=== PATIENT | female | born 1965 | race Caucasian/White ===

== ENCOUNTER → 2022-12-25 16:14 | Outpatient (CLI) | payer BC, SELFPAY ==
--- NOTE | 2022-12-25 | CA_ITS ---
FINAL REPORT TECHNIQUE: Color Doppler, duplex Doppler and compression sonography of the left lower extremity deep venous systems was performed. CLINICAL HISTORY: .plantar fascitis, lt leg swelling FINDINGS: There is no evidence of deep venous thrombosis from the level of the groin to the calf. The veins are patent and compressible. IMPRESSION: No evidence of deep venous thrombosis left lower extremity. Reviewed, Interpreted and Dictated by hJonatan Ruiz III, MD Transcribed by Traci Corley Authenticated and [facility]
== END ==
LOC: RT 16:21
PROVIDERS: PCP Nurse Practitioner Family; Visit Provider Nurse Practitioner Family
DX: R60.0 Localized edema (principal)
CPT/HCPCS: 93971

== ENCOUNTER → 2022-12-29 16:54 | Outpatient (CLI) | payer BC, SELFPAY ==
--- NOTE | 2022-12-29 | XR_ITS ---
PROCEDURE INFORMATION: Exam: XR Left Ankle Exam date and time: 12/29/2022 5:00 PM Age: 57 years old Clinical indication: Swelling or effusion of joint; Ankle; Additional info: Swelling of ankle joint TECHNIQUE: Imaging protocol: Radiologic exam of the left ankle. Views: 3 or more views. COMPARISON: CA VENOUS DOPPLER LE LT 12/25/2022 4:25 PM FINDINGS: Bones/joints: There is no evidence of acute fracture.There is no evidence of malalignment or dislocation. Calcaneal spur Soft tissues: Mild bimalleolar soft tissue swelling IMPRESSION: There is no evidence of acute fracture.There is no evidence of malalignment or dislocation.
--- NOTE | 2022-12-29 | XR_ITS ---
PROCEDURE INFORMATION: Exam: XR Left Foot Exam date and time: 12/29/2022 5:20 PM Age: 57 years old Clinical indication: Edema; Location not specified; Additional info: Edema of foot TECHNIQUE: Imaging protocol: Radiologic exam of the left foot. Views: 3 or more views. COMPARISON: CR XR ANKLE LT MIN 3V 12/29/2022 5:00 PM FINDINGS: Bones/joints: There is no evidence of acute fracture.There is no evidence of malalignment or dislocation. Degenerative changes in the tarsal bones Soft tissues: Normal. IMPRESSION: There is no evidence of acute fracture.There is no evidence of malalignment or dislocation.
== END ==
PROVIDERS: PCP Nurse Practitioner Family; Visit Provider Nurse Practitioner Family
DX: M25.572 Pain in left ankle and joints of left foot (principal); M25.472 Effusion, left ankle; R60.0 Localized edema
CPT/HCPCS: 73610; 73630

== ENCOUNTER → 2023-03-30 09:47 | Outpatient (CLI) | payer BC, SELFPAY ==
--- NOTE | 2023-03-30 09:48 | US_ITS ---
FINAL REPORT CLINICAL HISTORY: .rt thyroid fna -- moni resendiz FINDINGS: Ultrasound guided thyroid biopsy. HISTORY: Thyroid mass. PROCEDURE: After informed consent was obtained and a time-out was performed, the patient was prepped and draped in usual sterile fashion over the right neck. Utilizing local anesthesia and sterile technique with a 25-gauge needle, access to lesion was obtained. 4 passes were made. The patient tolerated the procedure well and left the department in good condition. IMPRESSION: Status post ultrasound guided biopsy of thyroid without immediate complication. Films reviewed , interpreted and dictated by Dr. Ruiz Transcribed by Moni Ludwig PA-C. Reviewed, Interpreted and Dictated by Jhonatan Ruiz III, MD Transcribed by MEGHAN Bryant Authenticated and [facility]
--- NOTE | 2023-03-30 09:49 | US_ITS ---
FINAL REPORT CLINICAL HISTORY: NODULE FINDINGS: Ultrasound of the thyroid gland: The right thyroid gland measures 4.5 x 1.7 x 1.9 cm in size. There are multiple nodules within the right thyroid gland. The 1st nodule measures 8 x 8 x 6 mm in size, is solid and hypoechoic, and is a TI-RADS 4 classification nodule. The 2nd significant nodule in the right thyroid gland measures 7 x 6 x 4 mm in size, is isoechoic and solid, and is a TI-RADS 3 classification nodule. The 3rd significant nodule in the right thyroid gland measures 15 x 14 x 10 mm in size, is solid and isoechoic with macro calcifications. This is a TI-RADS 4 classification nodule. Multiple other small nodules are noted in the right lobe. The left lobe of the thyroid gland measures 4.2 x 1.7 x 2.1 cm in size. There is a spongiform appearing nodule in the left thyroid gland that measures 18 x 12 x 10 mm in size, and is classified as a TI-RADS 1 category nodule. Other small nodules are also noted in the left thyroid gland. The isthmus measures 0.4 cm in thickness. IMPRESSION: Multiple thyroid nodules present as described above. Would recommend biopsy of the right lobe 15 x 14 x 10 cm solid and isoechoic nodule with macrocalcifications at this time. Recommend follow-up ultrasound examination in 12 months. Reviewed, Interpreted and Dictated by Jhonatan Ruiz III, MD Transcribed by Britt Shelby Authenticated and [facility]
== END ==
LOC: RAD 09:48
PROVIDERS: PCP Nurse Practitioner Family; Visit Provider Nurse Practitioner
DX: E04.1 Nontoxic single thyroid nodule (principal)
CPT/HCPCS: 10005; 76536

== ENCOUNTER 2023-04-25 00:48 | Emergency (ER) | payer BC, SELFPAY ==
[2023-04-25] VITALS (8 sets, daily range): BP systolic 130–176; BP diastolic 71–114; PULSE 53–68; RESP 12–17; TEMP 36.3; O2SAT 94–96; BMI 34.5; BMI 39.5
--- NOTE | 2023-04-25 00:55 | XR_ITS ---
PROCEDURE INFORMATION: Exam: XR Left Wrist Exam date and time: 04/25/2023 12:59 AM Age: 57 years old Clinical indication: Injury or trauma; Fall; Additional info: Fall, pain TECHNIQUE: Imaging protocol: Radiologic exam of the left wrist. Views: 3 or more views. COMPARISON: CR Forearm L 04/25/2023 12:59 AM FINDINGS: Bones/joints: Normal. The joints are well aligned. There is no fracture present. There is no area of lysis. Soft tissues: Normal. IMPRESSION: No fracture or dislocation.
--- NOTE | 2023-04-25 00:55 | XR_ITS ---
PROCEDURE INFORMATION: Exam: XR Left Elbow Exam date and time: 04/25/2023 12:58 AM Age: 57 years old Clinical indication: Injury or trauma; Fall; Additional info: Fall, pain TECHNIQUE: Imaging protocol: Radiologic exam of the left elbow. Views: 3 or more views. COMPARISON: CR XR HUMERUS LT 04/25/2023 12:55 AM FINDINGS: Bones/joints: Proximal diaphyseal fracture of the ulna with 1.1 cm of displacement. Dislocation of the radial head. Soft tissues: Normal. IMPRESSION: 1. Proximal diaphyseal fracture of the ulna with 1.1 cm of displacement. 2. Dislocation of the radial head.
--- NOTE | 2023-04-25 00:55 | XR_ITS ---
PROCEDURE INFORMATION: Exam: XR Left Forearm Exam date and time: 04/25/2023 12:59 AM Age: 57 years old Clinical indication: Injury or trauma; Fall; Additional info: Fall, pain TECHNIQUE: Imaging protocol: Radiologic exam of the left forearm. Views: 2 views. COMPARISON: CR XR ELBOW LT MIN 3V 04/25/2023 12:58 AM FINDINGS: Bones/joints: Proximal diaphyseal fracture of the ulna with 1.1 cm of displacement. No other fracture or dislocation. Soft tissues: Normal. IMPRESSION: 1. Proximal diaphyseal fracture of the ulna with 1.1 cm of displacement. 2. No other fracture or dislocation.
--- NOTE | 2023-04-25 00:59 | XR_ITS ---
PROCEDURE INFORMATION: Exam: XR Left Humerus Exam date and time: 04/25/2023 12:55 AM Age: 57 years old Clinical indication: Injury or trauma; Fall; Additional info: Fall, pain TECHNIQUE: Imaging protocol: Radiologic exam of the left humerus. Views: 2 or more views. COMPARISON: No relevant prior studies available. FINDINGS: Bones/joints: Normal. There is no acute fracture present. The joints are well aligned. Soft tissues: Normal. IMPRESSION: No fracture of the humerus. Please see separately dictated examination of the elbow.
--- NOTE | 2023-04-25 01:02 | PC.NURSE ---
patient gone to RAD at this time.
[2023-04-25 01:35] LABS: Basophils # 0.1 K/mm3 (0-0.2); Basophils % 0.4 % (0.1-2.0); Eosinophils # 0.1 K/mm3 (0.0-0.4); Eosinophils % 0.9 % (0.1-12.0); Hemoglobin 14.5 g/dL (12.2-16.2); Lymphocytes % 22.9 % (10-50); Mean Corpuscular Hemoglobin 31.3 pg (27.0-31.2); Mean Corpuscular Volume 95.1 fl (81-99); Mean Platelet Volume 7.7 fl (7.4-10.4); Monocytes # 0.6 K/mm3 (0.1-1.0); Monocytes % 4.6 % (1.7-9.3); Neutrophils # 9.3 K/mm3 (1.8-7.8); Neutrophils % 71.3 % (37.0-80.0); Platelet Count 259 K/mm3 (142-424); Red Blood Count 4.62 M/mm3 (4.20-5.40); Red Cell Distribution Width 12.9 % (11.5-17.5); White Blood Count 13.1 K/mm3 (4.8-10.8)
[2023-04-25 01:37] LABS: Chloride 101 mmol/L (98-107); Sodium 139 mmol/L (136-145)
[2023-04-25 01:38] LABS: Potassium 3.7 mmoL/L (3.5-5.1)
[2023-04-25 01:40] LABS: Alanine Aminotransferase 62 U/L (12-78); Alkaline Phosphatase 117 U/L (38-126); Aspartate Amino Transferase 47 U/L (14-36); Bilirubin,Total 0.3 mg/dl (0.2-1.3); Blood Urea Nitrogen 19 mg/dl (7-17); Creatinine Clearance Estimated 195 mL/min (50-200); Estimated Glomerular Filt Rate 103 ml/min (>60); GFR (African American) 125 ML/MIN (>60)
[2023-04-25 01:41] LABS: Albumin Level 4.7 g/dl (3.5-5.0); Albumin/Globulin Ratio 1.5 (1.1-1.8); Anion Gap 11.7 mEq/L (5-15); Calcium 9.3 mg/dl (8.4-10.2); Carbon Dioxide 30 mmol/L (22.0-30.0); Globulin 3.2 g/dL (1.3-3.2); Glucose 163 mg/dl (74-100); Total Protein,Serum 7.9 g/dl (6.3-8.2)
--- NOTE | 2023-04-25 01:50 | PC.NURSE ---
pt still c/o severe pain to left elbow. New order for dilaudid 1mg ivp
--- NOTE | 2023-04-25 02:10 | HMH.EDFALL ---
Discharge Plan Disposition Patient Disposition: Home, Self-Care Chief Complaint: Fall Prescriptions Prescriptions: No Action ergocalciferol (vitamin D2) 1,250 mcg (50,000 unit) capsule 1,250 mcg PO WEEKLY hydrochlorothiazide 25 mg tablet 25 mg PO DAILY Patient Comments: TAKE ONE (1) TABLET DAILY atorvastatin 20 mg tablet 20 mg PO DAILY atenolol 50 mg tablet 50 mg PO BID olopatadine [Pataday Once Daily Relief] 0.2 % drops 1 drp Eye-Both DAILY Patient Comments: INSTILL ONE (1) DROP INTO AFFECTED EYE(S) BY OPHTHALMIC ROUTE ONCE DAILY albuterol sulfate 2.5 mg /3 mL (0.083 %) solution for nebulization 2.5 mg inhalation Q4-6H PRN (Reason: Breathing Problems) fluticasone propionate 50 mcg/actuation spray,suspension 1 spray intranasal DAILY Patient Comments: SPRAY ONE (1) SPRAY EVERY DAY BY INTRANASAL ROUTE. irbesartan 150 mg tablet 150 mg PO DAILY Referrals Follow up/Referrals: Crystal Hurtado APRN [Primary Care Provider] - See instructions Yovani Sage DO [Staff Physician] - See instructions Clinical Impressions Clinical Impression: Monteggia fracture, closed Instructions Patient Instructions: DI for Moderate Sedation, DI for Elbow Fracture Discharge ED Provider: Gerson (ED)Ash Fall HPI General Chief Complaint: Fall Stated Complaint: AO 04/25/23 23:30 Left arm injury Time Seen by Provider: 04/25/23 02:10 Mode of Arrival: Wheelchair Source of Information: Patient and Medical Record Limitations: No Limitations Description of Symptoms (Recalled from ER Triage Doc. by RN): pt states tripped over 's boot and landed on knees and lt arm/ pt c/o lt arm pain. pt denies loc History of Present Illness HPI Narrative: trip injury and acute lt elbow pain - no neck pain and no hip pain MD complaint: fall Onset (ago): hour(s) Fall from: standing Fall witnessed: no Place fall occurred: home Loss of consciousness: none Prolonged down time: no Context: tripped/slipped Location of injury - extremities: Left: elbow Severity: moderate Associated symptoms (after fall): denies Related Data Home Medications Medication Instructions Recorded Confirmed albuterol sulfate 2.5 mg/3 mL 2.5 mg inhalation Q4-6H PRN 03/25/23 04/25/23 (0.083 %) solution for nebulization Breathing Problems atenolol 50 mg tablet 50 mg PO BID High Blood Pressure 03/25/23 04/25/23 atorvastatin 20 mg tablet 20 mg PO DAILY High Cholesterol 03/25/23 04/25/23 ergocalciferol (vitamin D2) 1,250 1,250 mcg PO WEEKLY Supplement 03/25/23 04/25/23 mcg (50,000 unit) capsule hydrochlorothiazide 25 mg tablet 25 mg PO DAILY High Blood Pressure 03/25/23 04/25/23 olopatadine 0.2 % eye drops 1 drp Eye-Both DAILY . 03/25/23 04/25/23 (Pataday Once Daily Relief) fluticasone propionate 50 1 spray intranasal DAILY Allergy 04/22/23 04/25/23 mcg/actuation nasal Symptoms spray,suspension irbesartan 150 mg tablet 150 mg PO DAILY High Blood Pressure 04/25/23 04/25/23 Allergies Allergy/AdvReac Type Severity Reaction Status Date / Time amlodipine Allergy Rash Verified 04/22/23 15:19 z pack Allergy Mild Rash Uncoded 04/22/23 15:19 Penicillin Allergy Unknown Uncoded 04/22/23 15:19 [facility] Disclaimer: The information contained in this section may have been updated after the patient was seen, as this information can be updated by other users. Medical History Asthma HLD (hyperlipidemia) HTN (hypertension), benign Thyroid Nodule Thyromegaly Surgical History H/O total hysterectomy History of appendectomy History of removal of ovarian cyst Hx of colonoscopy Hx of tonsillectomy Family History Other Cancer FHx: mental illness Hypertension Social History (Updated 04/22/23 @ 15:18 by Cindy Collins) Smoking Statu
--- NOTE | 2023-04-25 02:19 | PC.NURSE ---
Paged at this time.
--- NOTE | 2023-04-25 02:20 | PC.NURSE ---
o/p with at this time.
--- NOTE | 2023-04-25 02:22 | PC.NURSE ---
MD Nieto and staff reviewed procedure with pt and her & daughter. signed consent for procedure.
--- NOTE | 2023-04-25 02:36 | PC.NURSE ---
Puma Edge RN, and tin Oh at bedside to reduce fracture and displacement
--- NOTE | 2023-04-25 02:38 | XR_ITS ---
PROCEDURE INFORMATION: Exam: XR Left Elbow Exam date and time: 04/25/2023 2:45 AM Age: 57 years old Clinical indication: Injury or trauma; Fall; Additional info: Post reduction replaced TECHNIQUE: Imaging protocol: Radiologic exam of the left elbow. Views: 1 or 2 views. COMPARISON: CR XR ELBOW LT MIN 3V 04/25/2023 12:58 AM FINDINGS: Tubes, catheters and devices: Interval placement of overlying splint. Bones/joints: Interval reduction of the radial head. Proximal diaphyseal fracture of the ulna with 2 mm of displacement. Soft tissues: Normal. IMPRESSION: 1. Interval reduction of the radial head. 2. Proximal diaphyseal fracture of the ulna with 2 mm of displacement. This is significantly improved. 3. Interval placement of overlying splint.
--- NOTE | 2023-04-25 02:43 | PC.NURSE ---
nuclear medicine chief technologist called for portable XR to confirm reduction
--- NOTE | 2023-04-25 02:59 | PC.NURSE ---
paged at this time.
--- NOTE | 2023-04-25 03:01 | CT_ITS ---
PROCEDURE INFORMATION: Exam: CT Left Upper Extremity Without Contrast, Elbow Exam date and time: 04/25/2023 3:30 AM Age: 57 years old Clinical indication: Injury or trauma; Fall; Additional info: FX dislocation- post reduction CT request TECHNIQUE: Imaging protocol: Computed tomography of the left upper extremity without contrast. Exam focused on the elbow. Radiation optimization: All CT scans at this facility use at least one of these dose optimization techniques: automated exposure control; mA and/or kV adjustment per patient size (includes targeted exams where dose is matched to clinical indication); or iterative reconstruction. REPORTING DATA: Count of CT and Cardiac NM exams in prior 12 months: This patient has received 0 known CTs and 0 known cardiac nuclear medicine studies in the 12 months prior to the current study. COMPARISON: CR XR ELBOW LT 2V 04/25/2023 2:45 AM FINDINGS: Bones/joints: Proximal diaphyseal fracture of the ulna with up to 2 mm of displacement. Chip fracture off the articular surface of the lateral condyle. No other fracture. The radial head is well aligned. Soft tissues: Normal. IMPRESSION: 1. Proximal diaphyseal fracture of the ulna with up to 2 mm of displacement. 2. Chip fracture off the articular surface of the lateral condyle. 3. No other fracture. The radial head is well aligned. A splint is present.
--- NOTE | 2023-04-25 03:02 | PC.NURSE ---
o/p with at this time.
--- NOTE | 2023-04-25 03:08 | PC.NURSE ---
pt and pt's family updated that reduction was successful and will be doing ct of elbow per DR dominguez request.
== END 2023-04-25 04:28 | disposition home or self-care (01) ==
PROVIDERS: Emergency Provider Emergency Medicine; PCP Nurse Practitioner Family
DX: S52.272A Monteggia's fracture of left ulna, initial encounter for closed fracture (principal); J45.909 Unspecified asthma, uncomplicated; I10 Essential (primary) hypertension; E78.5 Hyperlipidemia, unspecified; E01.0 Iodine-deficiency related diffuse (endemic) goiter; Z87.891 Personal history of nicotine dependence
CPT/HCPCS: 24620; 73060; 73070; 73080; 73090; 73110; 73200; 80053; 85025; 96361; 96375; 96376; 99152; 99285; J2405

== ENCOUNTER → 2023-04-28 09:42 | Outpatient (CLI) | payer BC, SELFPAY ==
[2023-04-28 10:23] LABS: Basophils % 0.2 % (0.1-2.0); Eosinophils # 0.1 K/mm3 (0.0-0.4); Eosinophils % 0.9 % (0.1-12.0); Hematocrit 45.8 % (37.0-47.0); Hemoglobin 15.3 g/dL (12.2-16.2); Lymphocytes # 2.5 K/mm3 (0.7-4.5); Lymphocytes % 15.3 % (10-50); Mean Corpuscular HGB Conc 33.4 g/dL (31.8-35.4); Mean Corpuscular Hemoglobin 31.8 pg (27.0-31.2); Mean Corpuscular Volume 95.3 fl (81-99); Mean Platelet Volume 7.9 fl (7.4-10.4); Monocytes # 0.7 K/mm3 (0.1-1.0); Monocytes % 4.6 % (1.7-9.3); Neutrophils # 12.7 K/mm3 (1.8-7.8); Neutrophils % 79.1 % (37.0-80.0); Platelet Count 321 K/mm3 (142-424); Red Blood Count 4.81 M/mm3 (4.20-5.40); White Blood Count 16.1 K/mm3 (4.8-10.8)
[2023-04-28 10:26] LABS: MANUAL DIFFERENTIAL MANUAL DIFFERENTIAL (MANUAL DIFF)
[2023-04-28 10:48] LABS: Alanine Aminotransferase 53 U/L (12-78); Albumin Level 4.7 g/dl (3.5-5.0); Albumin/Globulin Ratio 1.6 (1.1-1.8); Alkaline Phosphatase 103 U/L (38-126); Anion Gap 14.1 mEq/L (5-15); Aspartate Amino Transferase 41 U/L (14-36); Blood Urea Nitrogen 16 mg/dl (7-17); Calcium 9.8 mg/dl (8.4-10.2); Carbon Dioxide 29 mmol/L (22.0-30.0); Chloride 99 mmol/L (98-107); Estimated Glomerular Filt Rate 74 ml/min (>60); GFR (African American) 90 ML/MIN (>60); Globulin 2.9 g/dL (1.3-3.2); Glucose 142 mg/dl (74-100); Potassium 4.1 mmoL/L (3.5-5.1); Sodium 138 mmol/L (136-145); Total Protein,Serum 7.6 g/dl (6.3-8.2)
[2023-04-28 11:53] LABS: Lymphocytes % 15 % (10-50); Monocytes % 4 % (2-9); Neutrophils % 81 % (42-76); Platelet Estimate Normal; RBC Morphology Normal; Total Cells Counted 100
== END ==
PROVIDERS: PCP Nurse Practitioner Family; Visit Provider Orthopaedic Surgery
DX: Z01.818 Encounter for other preprocedural examination (principal); S52.272A Monteggia's fracture of left ulna, initial encounter for closed fracture
CPT/HCPCS: 36415; 80053; 85007; 85025

== ENCOUNTER → 2023-05-05 12:22 | Outpatient (CLI) | payer BC, SELFPAY ==
--- NOTE | 2023-05-05 12:35 | ECG_ITS ---
APPROVED REPORT Exam: Resting ECG HR:67 bpm ECG Measurements Heart Rate 67 AXES CA 188 P 16 QRSd 104 QRS -19 QT 382 T 11 QTc 398 Conclusion SINUS RHYTHM WITH OCCASIONAL VENTRICULAR PREMATURE COMPLEXES VOLTAGE CRITERIA FOR LVH [MEETS CRITERIA IN ONE OF: R(aVL), S(V1), R(V5), R(V5/V6)+S(V1)] ABNORMAL ECG UNCONFIRMED REPORT Electronically signed by : Hipolito Proctor MD 05/06/2023 21:20:13
[2023-05-05 12:39] LABS: Microscopic, Urine URINE MICROSCOPIC (MICROSCOPIC)
[2023-05-05 13:02] LABS: Basophils % 0.5 % (0.1-2.0); Eosinophils # 0.1 K/mm3 (0.0-0.4); Eosinophils % 1.4 % (0.1-12.0); Hematocrit 47.5 % (37.0-47.0); Lymphocytes # 2.3 K/mm3 (0.7-4.5); Lymphocytes % 27.2 % (10-50); Mean Corpuscular HGB Conc 33.8 g/dL (31.8-35.4); Mean Corpuscular Hemoglobin 31.9 pg (27.0-31.2); Mean Corpuscular Volume 94.5 fl (81-99); Mean Platelet Volume 7.6 fl (7.4-10.4); Monocytes # 0.5 K/mm3 (0.1-1.0); Monocytes % 5.8 % (1.7-9.3); Neutrophils # 5.5 K/mm3 (1.8-7.8); Platelet Count 325 K/mm3 (142-424); Red Blood Count 5.02 M/mm3 (4.20-5.40); Red Cell Distribution Width 12.8 % (11.5-17.5); White Blood Count 8.5 K/mm3 (4.8-10.8)
[2023-05-05 13:10] LABS: Appearance,Urine CLEAR (Clear); Bilirubin,Urine Negative (Negative); Blood, Urine TRACE-I (Negative); Color,Urine YELLOW (Yellow); Glucose,Urine (UA) Negative (Negative); Ketones,Urine Negative (Negative); Leukocyte Esterase,Urine Negative (Negative); Nitrate,Urine Negative (Negative); PH,Urine 6.5 (5.0-8.5); Protein,Urine Negative (Negative); Specific Gravity, Urine <= 1.005 (1.005-1.030); Urobilinogen,Urine 0.2 EU/dl (0.2)
== END ==
LOC: LAB 12:22
PROVIDERS: PCP Nurse Practitioner Family; Visit Provider Orthopaedic Surgery
DX: Z01.818 Encounter for other preprocedural examination (principal)
CPT/HCPCS: 36415; 81001; 85025; 93005

== ENCOUNTER 2023-05-06 09:06 | Day surgery (SDC) | payer BC, SELFPAY ==
[2023-05-06] VITALS (11 sets, daily range): BP systolic 115–132; BP diastolic 31–92; PULSE 62–93; RESP 14–18; TEMP 36.4–36.6; O2SAT 93–98; BMI 34.8
--- NOTE | 2023-05-06 10:22 | EXP.ANES.CKL ---
[facility] Disclaimer: The information contained in this section may have been updated after the patient was seen, as this information can be updated by other users. Medical History Asthma HLD (hyperlipidemia) HTN (hypertension), benign Thyroid Nodule Thyromegaly Surgical History H/O total hysterectomy History of appendectomy History of removal of ovarian cyst Hx of colonoscopy Hx of tonsillectomy Family History Other Cancer FHx: mental illness Hypertension Social History Smoking Status: Former smoker smoking status stop date: 03/23/23 alcohol intake: never substance use type: denies use current occupational status: employed Travel in the last 8 weeks: None household members: spouse and family housing: house lives independently: No marital status: education level: college service: No caffeine: Yes special ana needs: No agree to transfusion: No do you feel safe at home: Yes victim of physical abuse: No victim of emotional abuse: No victim of sexual abuse: No would you like helpful sources: No [facility] Anesthesia Checklist Patient Identification Patient Identification: Arm Band and Family Structural Data Admitted From: Home Planned Operative Procedure/s: Metal plate on Left Ulna Consent for Planned Operative Procedure(s) Verified: Yes Verified Documents: Surgical Consent and History and Physical NPO Status Verified Time NPO: 00:00 Additional verifications Patient : No Anesthesia Reactions: No Hx Blood Transfusions: No Blood Transfusion Reaction: No Cephalosporin Allergy: No Previous Colonoscopy: Yes Airway Assessment C-Spine Mobility Assessed: Yes TMJ Mobility Assessed: Yes Dentition: Good Dentition Neurological Assessment Level of Consciousness: Awake, Alert, Appropriate and Follows Commands Hx Seizures: No Numbness or tingling in extremities: No Anesthesia Plan Anesthesia Risk discussed: Yes ASA Class: II Anesthesia Type: MAC w/Block Preoperative Comments Pre-Operative Comments: Allergy to PCN, Amlodipine, and (Zithromycine, Hives). Hypertension, COPD, Hepatitis at age 13.
--- NOTE | 2023-05-06 13:31 | EXP.ANES.I ---
[facility] Anesthesia Record Part I Anesthesia Record I Intake, IV Amount: 2,800 Estimated blood loss (mL): 2 Urine output (mL): 0 Blood Products used (#): none Blood Pressure: 132/31 SaO2: 94 Pulse Rate: 93 Respiratory Rate: 14 Temperature: 97.6 F Patient is:: Drowsy and Stable Stable to PACU at:: 13:22
--- NOTE | 2023-05-06 13:38 | XR_ITS ---
FINAL REPORT CLINICAL HISTORY: LEFT ORIF ULNA IN OR. ft 34 sec FINDINGS: Fluoroscopy less than 1 hour History: Intraoperative instrument placement elbow Findings: Fluoroscopic guidance was provided for intraoperative instrument placement. A single spot film was obtained. 34 seconds of fluoro time was used. IMPRESSION: As above 63 kVp, 1.66 mA 1.71 mGy Reviewed, Interpreted and Dictated by Shilpa Nowak MD Transcribed by Britt Shelby Authenticated and [facility]
--- NOTE | 2023-05-06 14:31 | EXP.OP.NOTE ---
Date of procedure: 05/06/23 Pre-op Diagnosis:: Left Monteggia fracture status post closed reduction of radial head Post-op Diagnosis:: Same Procedure performed:: Open reduction internal fixation left ulna Surgeon:: Yovani Sage DO ENVIRONMENTAL CONSTRUCTION ENGINEER:: Other Anesthesia: GETA Estimated blood loss (mL): 0 Operative findings:: Stable radial head with flexion extension pronation supination Operative note:: Patient was identified preoperatively. Left arm marked yes my initials. Underwent a block with anesthesia. Then taken the operating room. Placed upon the operating bed. General anesthesia ministered airway secured. Then placed in a lateral position with a beanbag with the left arm up. Left arm was then prepped and draped in normal sterile fashion. Once prepped and draped final operative timeout performed to identify proper patient procedure and extremity. Everyone involved the case agreed. There is no counter indication beginning. She did receive preoperative antibiotics. Marking pen was used to make plan incision over the ulna. X-ray was brought into identify the fracture of the ulna. Esmarch was used to exsanguinate the extremity. Pneumatic tourniquet inflated to 250 mmHg. Skin knife was used incise the skin. Careful dissection was taken down to identify the fracture site fracture hematoma at the ulna. Fracture edges were cleaned and reduction of the ulna performed. 2.7 mm plate was selected from [employer] locking plate set. And a plate was placed both proximal and distal to the fracture site. Locking screws and cortical screws were used. This gave good reduction of the fracture elbow was taken through range of motion pronation supination of the elbow revealed stable radial head with the ulna out to length. Copious irrigation of the wound was performed. Deep layers closed with Vicryl stitch skin was closed with 3-0 nylon stitch sterile dressing placed in a well-padded posterior splint placed patient waken anesthesia taken recovery stable condition. Condition: stable Disposition: PACU Complications:: None apparent
--- NOTE | 2023-05-11 07:45 | P.PNANES_ITS ---
[facility] Anesthesia Record Part II Anesthesia Record Part II Discharge Time: 13:59 Destination: Surgical Day Care (OP Surgery) PACU nurse assessment reviewed?: Yes Patient Condition:: Good Anesthesia Complications:: None Swallowing reflex intact?: Yes Cyanosis?: No Blood Pressure: 131/77 Pulse Rate: 71 Temperature: 97.9 F Mental Status: Alert & Oriented Pain level:: 0 Nausea and/or vomitting:: None Intake, IV Amount: 0
[2023-05-11 07:46] VITALS: BP 131/77; PULSE 71; TEMP 36.6
== END 2023-05-06 14:29 | disposition home or self-care (01) ==
PROVIDERS: PCP Nurse Practitioner Family; Visit Provider Orthopaedic Surgery
PROC: (CPT 24685; principal; 2023-05-06 10:30)
DX: S52.272A Monteggia's fracture of left ulna, initial encounter for closed fracture (principal); I10 Essential (primary) hypertension; E78.5 Hyperlipidemia, unspecified; Z87.891 Personal history of nicotine dependence; W01.0XXA Fall on same level from slipping, tripping and stumbling without subsequent striking against object, initial encounter
CPT/HCPCS: 24685; 73070; 96374; C1713; C1776; J2405

== ENCOUNTER → 2023-05-26 14:27 | Outpatient (CLI) | payer BC, SELFPAY ==
--- NOTE | 2023-05-26 14:31 | XR_ITS ---
FINAL REPORT CLINICAL HISTORY: lt wrist pain, recent fall FINDINGS: 3 views of the left wrist were obtained. Overlying splint material obscures bony detail. There is no acute fracture or dislocation. There are mild to moderate degenerative changes of the radial aspect of the wrist. There is no soft tissue abnormality. IMPRESSION: No acute abnormality. Reviewed, Interpreted and Dictated by Jhonatan Ruiz III, MD Transcribed by Earle Chapman Authenticated and [facility]
--- NOTE | 2023-05-26 14:31 | XR_ITS ---
FINAL REPORT CLINICAL HISTORY: lt elbow pain, recent fall FINDINGS: LEFT ELBOW 3 views were obtained. There is a comminuted fracture of the proximal ulna with postoperative change from ORIF. There is a screw plate and multiple screws. The visualized joints are intact. IMPRESSION: Comminuted proximal ulna fracture with postoperative change. Reviewed, Interpreted and Dictated by Jhonatan Ruiz III, MD Transcribed by Earle Chapman Authenticated and [facility]
== END ==
PROVIDERS: PCP Nurse Practitioner Family; Visit Provider Orthopaedic Surgery
DX: S52.272A Monteggia's fracture of left ulna, initial encounter for closed fracture (principal); M25.522 Pain in left elbow
CPT/HCPCS: 73080; 73110

== ENCOUNTER 2023-05-26 15:50 | Outpatient (RCR) | payer BC, SELFPAY | END 2023-05-26 16:30 | disposition home or self-care (01) | LOC: OT 15:50 | PROVIDERS: Visit Provider Orthopaedic Surgery | DX: S52.272A Monteggia's fracture of left ulna, initial encounter for closed fracture (principal) ==

== ENCOUNTER → 2023-06-02 15:27 | Outpatient (CLI) | payer BC, SELFPAY ==
[2023-06-02 16:49] LABS: Alanine Aminotransferase 44 U/L (12-78); Albumin Level 4.6 g/dl (3.5-5.0); Alkaline Phosphatase 104 U/L (38-126); Aspartate Amino Transferase 36 U/L (14-36); Bilirubin,Indirect 0.5 mg/dL (0.0-0.9); Bilirubin,Total 0.5 mg/dl (0.2-1.3); Bilirubin,Unconjugated 0.6 mg/dL (0.0-1.1); Chol/HDL Ratio 3.8 (1-3.5); Cholesterol 188 mg/dl (140-200); HDL Cholesterol 49 mg/dl (40-60); Total Protein,Serum 7.6 g/dl (6.3-8.2); Triglycerides 320 mg/dl (30-150); VLDL Cholesterol 64 mg/dL (0-40)
[2023-06-02 17:00] LABS: Direct LDL Cholesterol 90.59 mg/dL (100-129)
[2023-06-02 17:13] LABS: Hemoglobin A1C 5.5 % (4.0-6.0)
== END ==
PROVIDERS: PCP Nurse Practitioner Family; Visit Provider Nurse Practitioner
DX: R73.9 Hyperglycemia, unspecified (principal); I10 Essential (primary) hypertension; E78.5 Hyperlipidemia, unspecified; I77.810 Thoracic aortic ectasia; J44.9 Chronic obstructive pulmonary disease, unspecified; Z78.9 Other specified health status
CPT/HCPCS: 36415; 80061; 80076; 83036

== ENCOUNTER → 2023-06-25 11:08 | Outpatient (CLI) | payer BC, SELFPAY ==
--- NOTE | 2023-06-25 11:27 | XR_ITS ---
FINAL REPORT CLINICAL HISTORY: f/u surg COMPARISON: None FINDINGS: LEFT WRIST Three views demonstrate no acute fracture or dislocation. The visualized joint spaces are normally aligned. The soft tissues are unremarkable. There is mild degenerative change in the radial aspect of the left wrist. IMPRESSION: No acute bony abnormality. Reviewed, Interpreted and Dictated by Jhonatan Ruiz III, MD Transcribed by Britt Shelby Authenticated and [facility]
--- NOTE | 2023-06-25 11:27 | XR_ITS ---
FINAL REPORT CLINICAL HISTORY: f/u surg COMPARISON: None FINDINGS: 2 views of the left forearm were obtained. There is a plate and orthopedic screws bridging an acute fracture of the proximal ulna. The joints are intact. There are no soft tissue abnormalities. IMPRESSION: ORIF fracture proximal left ulna. Reviewed, Interpreted and Dictated by Jhonatan Ruiz III, MD Transcribed by Britt Shelby Authenticated and [facility]
== END ==
PROVIDERS: PCP Nurse Practitioner Family; Visit Provider Orthopaedic Surgery
DX: S52.272A Monteggia's fracture of left ulna, initial encounter for closed fracture (principal)
CPT/HCPCS: 73090; 73110

== ENCOUNTER → 2023-07-23 09:53 | Outpatient (CLI) | payer BC, SELFPAY ==
--- NOTE | 2023-07-23 09:58 | XR_ITS ---
FINAL REPORT CLINICAL HISTORY: Lt elbow pain COMPARISON: 05/26/2023 FINDINGS: 3 views of the left elbow were obtained. There are postoperative changes from proximal ulnar ORIF with screw plate and multiple screws. There is no acute fracture or dislocation. There are mild degenerative changes. There is no acute soft tissue abnormality. IMPRESSION: Postoperative and degenerative changes without acute abnormality identified. Reviewed, Interpreted and Dictated by Jhonatan Ruiz III, MD Transcribed by Astrid Echeverria Authenticated and . [facility]
== END ==
PROVIDERS: PCP Nurse Practitioner Family; Visit Provider Orthopaedic Surgery
DX: M25.522 Pain in left elbow (principal); S52.272A Monteggia's fracture of left ulna, initial encounter for closed fracture
CPT/HCPCS: 73080

== ENCOUNTER 2023-09-23 11:00 | Outpatient (RCR) | payer BC, SELFPAY ==
--- NOTE | 2023-06-29 16:56 | HMH.OTOPEV ---
OT Inpatient Evaluation Rehab OT Outpatient Eval Start: 06/29/23 16:41 Freq: Status: Active Protocol: Document 06/29/23 16:41 LAKHWINDERDARYN (Rec: 06/29/23 16:56 MICHANNA MARIE [id number]) E-signed By Samira Mccarthy, OT Outpatient Therapy Subjective History Subjective History 58 year old female referred to skilled OP OT services for s/ p ORIF L ulna on 05/06/23. On patient reported that she fell at home resulted in the fracture. Patient is currently 8 weeks out form initial evaluation. New diagnosis of cancer in past 12 No months? Chief Complaint Pain,Weakness Symptom Type Ache Symptoms Relieved By Nothing Symptoms Aggravated By Physical Activity Prior Functional Limitations None Current Functional Limitations None Symptom Description Constant and Continuous Level of pain today (0-10) 4 Pain scale - at its best (0-10) 4 Pain scale - at its worst (0-10) 7 Shoulder/Elbow Eval Shoulder Objective Measurements Elbow Objective Measurements Elbow ROM Left full ROM elbow exam standard left Elbow Extension Active Range of Motion ( 45 degrees) Elbow Flexion Active Range of Motion ( 110 degrees) Elbow Pronation of Forearm Range of 90 Motion (degrees) Elbow Supination of Forearm Range of 45 Motion (degrees) Wrist/Hand Eval Customer Support Assistant/Pinch Strength Right Customer Support Assistant Strength Measurement (lbs) 50 Left Customer Support Assistant Strength Measurement (lbs) 25 QuickDASH Activities Please rate your ability to do the following activities in the last week by selecting the number below the appropriate response. 1. Open a tight or new jar. Unable 2. Do heavy customer support advisor (e.g., wash Unable colon, floors). 3. Carry a shopping bag or briefcase. Severe difficulty 4. Wash your back. Unable 5. Use a knife to cut food. Moderate difficulty 6. Recreational activities in which you Unable take some force or impact through your arm, shoulder, or hand (e.g., golf, hammering, tennis, etc.). 7. During the past week, to what extent Extremely has your arm, shoulder or hand problem interfered with your normal social activities with family, friends, neighbors or groups? 8. During the past week, were you Unable limited in your work or other regular daily activites as a result of your arm, shoulder or hand problem? 9. Arm, shoulder or hand pain. Severe 10. Tingling (pins and needles) in your Moderate arm, shoulder or hand. 11. During the past week, how much Moderate difficulty difficulty have you had sleeping because of the pain in your arm, shoulder or hand? Quick DASH 47 OT Outpatient Assessment Impairments Problems/Impairments Impaired Range of Motion, Impaired Strength,Subjective C /O Pain Prognosis Rehab Potential Good Clinical Impression Consistent with Diagnosis Yes Short Term Goals Number of Weeks 2 Increase Range of Motion Yes: AROM of L UE elbow flex: 120; ext: 40; SUP: 50 Increase Strength Yes: Improve L UE hand allied health teacher: 30# Decrease Subjective C/O Pain Yes: 6/10 pain at worst Patient to be Ind w/ HEP Yes: AAROM Patient to be Ind w/ Advanced HEP Yes: Strengthening Coal Deliverer Goals Number of Weeks 4 Increase Range of Motion Yes: AROM of L UE elbow flex: 130; ext: 30; SUP: 60 Increase Strength Yes: Improve L UE hand allied health teacher: 35# Decrease Subjective C/O Pain Yes: 5/10 pain at worst Patient to be Ind w/ HEP Yes: AROM Patient to be Ind w/ Advanced HEP Yes: Advance strengthening Outpatient Therapy Plan of Care Treatment Plan May Include Therapeutic Exercise Including Home Yes Exercise Program Manual Therapy Techniques Yes Therapeutic Activities to Return to Yes Previous Functional/Work Level Thermal Modalities Yes Electrical Stimulation Yes Ultrasound/Phonophoresis Yes Iontophoresis Yes Eval/Re-Eval Yes Aquatic Therapy Yes Frequency Times per week 2x/wk Duration Number of Weeks 4 weeks Addendums This patient is a candidate for social No or vocational rehab? Patient/Guardian verbally acknowledges Yes understanding of treatment program and consents to further treatment? Patient/Guardian verbally acknowledges Yes understanding of diagnosis, prognosis and goals for treatment? Eval Complexity OT Charge 85795 - Low Complexity PHYSICIAN CERTIFICATION: I certify the specified therapy services for Piper Peace are required, authorized, and reviewed every 30 days.
== END 2023-09-23 12:00 | disposition home or self-care (01) ==
LOC: OT 11:00
PROVIDERS: PCP Nurse Practitioner Family; Visit Provider Orthopaedic Surgery
DX: S52.612A Displaced fracture of left ulna styloid process, initial encounter for closed fracture (principal)
CPT/HCPCS: 97010; 97014; 97035; 97110; 97140; 97164; 97165; 97530; G0283

== ENCOUNTER → 2023-09-24 11:08 | Outpatient (CLI) | payer BC, SELFPAY ==
--- NOTE | 2023-09-24 11:28 | XR_ITS ---
FINAL REPORT CLINICAL HISTORY: elbow pain COMPARISON: 07/23/2023 FINDINGS: AP, oblique, and lateral views of the left elbow were obtained. There is no acute fracture or dislocation. There is a plate and screws, unchanged in appearance, in the proximal ulna. Mild degenerative changes present in the left elbow. There is no joint effusion or other soft tissue abnormality. IMPRESSION: No acute osseous abnormality of the left elbow. Status post ORIF proximal ulnar fracture, stable. Reviewed, Interpreted and Dictated by Jhonatan Ruiz III, MD Transcribed by Britt Shelby Authenticated and . [facility]
== END ==
PROVIDERS: PCP Nurse Practitioner Family; Visit Provider Orthopaedic Surgery
DX: M25.522 Pain in left elbow (principal)
CPT/HCPCS: 73080

== ENCOUNTER 2023-11-12 09:38 | Outpatient (CLI) | payer BC, SELFPAY ==
--- NOTE | 2023-11-12 09:43 | XR_ITS ---
FINAL REPORT CLINICAL HISTORY: Lt Ulna Fx (April 2023) pain limited range of motion COMPARISON: 09/24/2023 FINDINGS: AP, oblique, and lateral views of the right elbow were obtained. There is a sideplate and screws bridging a proximal left ulnar fracture, healed. There is no acute fracture or dislocation. Joint space is preserved. There is no joint effusion or other soft tissue abnormality. IMPRESSION: No acute osseous abnormality of the right elbow. Side plate and screws bridge a left ulnar fracture, unchanged since the prior exam of September 24. Reviewed, Interpreted and Dictated by Tono Andrade MD Transcribed by Britt Shelby Authenticated and [facility]
== END 2023-11-12 23:59 ==
LOC: RAD 09:39
PROVIDERS: PCP Nurse Practitioner Family; Visit Provider Orthopaedic Surgery
DX: S52.272A Monteggia's fracture of left ulna, initial encounter for closed fracture (principal)
CPT/HCPCS: 73080

== ENCOUNTER 2024-04-19 15:36 | Outpatient (CLI) | payer BC, SELFPAY ==
--- NOTE | 2024-04-19 15:44 | XR_ITS ---
FINAL REPORT CLINICAL HISTORY: Right foot Pain COMPARISON: None FINDINGS: RIGHT FOOT 3 views of the right foot were obtained. There is no acute fracture or dislocation. Moderate degenerative change is noted at the first MTP. Mild degenerative changes are noted elsewhere in the foot. There is a plantar calcaneal spur. Soft tissues are unremarkable. IMPRESSION: Degenerative changes without acute bony abnormality. Plantar calcaneal spur. Reviewed, Interpreted and Dictated by Jhonatan Ruiz III, MD Transcribed by Astrid Echeverria Authenticated and [facility]
--- NOTE | 2024-04-19 15:44 | XR_ITS ---
FINAL REPORT CLINICAL HISTORY: Left foot Pain COMPARISON: 12/29/2022 FINDINGS: LEFT FOOT Three views of the left foot demonstrate no acute fracture or dislocation. There is mild degenerative change, greatest at the midfoot. A plantar calcaneal spur is noted. The soft tissues are unremarkable. IMPRESSION: Degenerative changes without acute bony abnormality. Plantar calcaneal spur. Reviewed, Interpreted and Dictated by Jhonatan Ruiz III, MD Transcribed by Astrid Echeverria Authenticated and . [facility]
== END 2024-04-19 23:59 | disposition home or self-care (01) ==
LOC: RAD 15:38
PROVIDERS: PCP Nurse Practitioner Family; Visit Provider Nurse Practitioner Family
DX: M79.671 Pain in right foot (principal)
CPT/HCPCS: 73630

== ENCOUNTER 2024-05-09 21:44 | Emergency (ER) | payer BC, SELFPAY ==
[2024-05-09 21:46] VITALS: BP 175/94; PULSE 63; RESP 18; TEMP 36.7; O2SAT 100; BMI 36.1
[2024-05-09 22:00] VITALS: BP 150/100; PULSE 62; PULSE 63; O2SAT 96
--- NOTE | 2024-05-09 22:12 | ED_ITS ---
<Statement entered by Amberly Kennedy MD - 05/09/24 23:20> I was consulted by the CANDELARIO, and we discussed the complexity of the problems being addressed. I approved the treatment and management plan for this patient's care in the emergency department, thus performing a substantive portion of the medical decision making. Amberly Kennedy MD, DENISE, FACEP Discharge Plan Disposition Chief Complaint: Extremity Injury, Upper Prescriptions Prescriptions: No Action hydrochlorothiazide 25 mg tablet 25 mg PO DAILY Patient Comments: TAKE ONE (1) TABLET DAILY atorvastatin 20 mg tablet 20 mg PO DAILY atenolol 50 mg tablet 50 mg PO BID olopatadine [Pataday Once Daily Relief] 0.2 % drops 1 drp Eye-Both DAILY Patient Comments: INSTILL ONE (1) DROP INTO AFFECTED EYE(S) BY OPHTHALMIC ROUTE ONCE DAILY albuterol sulfate 2.5 mg /3 mL (0.083 %) solution for nebulization 2.5 mg inhalation Q4-6H PRN (Reason: Breathing Problems) fluticasone propionate 50 mcg/actuation spray,suspension 1 spray intranasal DAILY Patient Comments: SPRAY ONE (1) SPRAY EVERY DAY BY INTRANASAL ROUTE. diclofenac sodium 1 % gel 4 g topical QID PRN (Reason: pain ) Qty: 100 2RF Rx Instructions: apply to single, ankle, foot; for foot includes sole/toes/top of foot Referrals Follow up/Referrals: Crystal Hurtado APRN [Primary Care Provider] - See instructions Discharge ED Provider: Amberly Kennedy General Adult HPI General Chief complaint: Extremity Injury, Upper Stated complaint: AO 05/09/24 1900 Injury left arm Time Seen by Provider: 05/09/24 22:12 Mode of Arrival: Ambulatory Source of Information: Patient Limitations: No Limitations Description of Symptoms (Recalled from ER Triage Doc. by RN): Pt ambulatory to ED with c/o fall aprox 1 hour ago. pt reports she fell onto her left arm/elbow. pt reports she fell 1 year ago and required surgery, done by Dr Sage. Pt took 600mg ibuprofen before arrival History of Present Illness HPI narrative: Patient presents for evaluation of a fall. Patient tripped and fell landing with her bilateral arms outstretched in front of her. Patient had ORIF of the left forearm approximately a year ago and after the fall she had exquisite excruciating pain and had very much difficulty moving in any direction without pain. She is neurovascular intact distally but any movement of the hand or other joint exacerbates her discomfort. She denies injury to any other body part and did not lose consciousness. Related Data Home Medications Medication Instructions Recorded Confirmed albuterol sulfate 2.5 mg/3 mL 2.5 mg inhalation Q4-6H PRN 03/25/23 04/26/24 (0.083 %) solution for nebulization Breathing Problems atenolol 50 mg tablet 50 mg PO BID High Blood Pressure 03/25/23 04/26/24 atorvastatin 20 mg tablet 20 mg PO DAILY High Cholesterol 03/25/23 04/26/24 hydrochlorothiazide 25 mg tablet 25 mg PO DAILY High Blood Pressure 03/25/23 04/26/24 olopatadine 0.2 % eye drops 1 drp Eye-Both DAILY . 03/25/23 04/26/24 (Pataday Once Daily Relief) fluticasone propionate 50 1 spray intranasal DAILY Allergy 04/22/23 04/26/24 mcg/actuation nasal Symptoms spray,suspension Previous Rx's Medication Instructions Recorded diclofenac sodium 1 % topical gel 4 g topical QID PRN pain #100 04/29/24 grams Allergies Allergy/AdvReac Type Severity Reaction Status Date / Time amlodipine Allergy Rash Verified 04/26/24 15:11 z pack Allergy Mild Rash Uncoded 11/12/23 10:23 Penicillin Allergy Unknown Uncoded 11/12/23 10:23 [facility] Disclaimer: The information contained in this section may have been updated after the patient was seen, as this information can be updated by other users. Medical History Thyromegaly Thyroid Nodule Asthma HLD (hyperlipidemia) HTN (hypertension), benign Surgical History Hx of elbow surgery Hx of colonoscopy H/O total hysterectomy History of removal of ovarian cyst Hx of tonsillectomy History of appendectomy Family History Other Cancer FHx: mental illness Hypertension Social History Smoking Status: Former smoker smoking status stop date: 03/23/23 alcohol intake: never substance use type: denies use current occupational status: employed Travel in the last 8 weeks: None household members: spouse and family housing: house lives independently: No marital status: education level: college service: No caffeine: Yes special ana needs: No agree to transfusion: No do you feel safe at home: Yes victim of physical abuse: No victim of emotional abuse: No victim of sexual abuse: No would you like helpful sources: No ROS Obtained: Yes Systems reviewed as appropriate & no additional complaints except as documented Physical Exam General General appearance: alert and in no apparent distress Respiratory Respiratory exam: Present normal lung sounds bilaterally Cardiovascular Cardiovascular exam: Present regular rate and normal rhythm Extremities Exam Extremities exam: Present tenderness and normal capillary refill; Absent normal inspection (The left upper extremity appears to be edematous however full limb assessment cannot be done currently due to the patient's pain. She is however neurovascular intact distally and is able to move all 5 fingers and has no motor or sensory defect), full ROM or edema Neurological Exam Neurological exam: Present alert, oriented X3 and CN II-XII intact Psychiatric Psychiatric exam: Present normal affect and normal mood Skin Skin exam: Present warm, dry and normal color Lymphatic Lymphatic Findings: no adenopathy Medical Decision Making Sudarshan Inquiry Pt receiving controlled substance: No Vital Signs: 05/09/24 21:46 05/09/24 22:00 05/09/24 22:00 Temperature 98.0 F Temperature Source Oral Pulse Rate 62 Pulse Rate [Left Radial] 63 63 Pulse Rate [Right Radial] 63 Respiratory Rate 18 Blood Pressure 150/100 H Blood Pressure [Right Arm] 175/94 H Blood Pressure Mean [Right Arm] 121 Blood Pressure Source [Right Arm] Automatic Cuff Blood Pressure Position [Right Arm] Sitting 02 Sat by Pulse Oximetry 100 96 Oxygen Delivery Method Room Air Orders (Tests/Meds): ED MEDICATIONS Discontinued Medications Generic Name Dose Route Start Last Admin Trade Name Austinq PRN Reason Stop Dose Admin Acetaminophen 1,000 mg 05/09/24 22:16 05/09/24 22:28 Acetaminophen 500mg Tab PO 05/09/24 22:17 1,000 mg ONCE ONE Administration Ibuprofen 800 mg 05/09/24 22:16 05/09/24 22:27 Ibuprofen 400 Mg Tablet PO 05/09/24 22:17 Not Given ONCE ONE Oxycodone HCl 5 mg 05/09/24 22:16 05/09/24 22:28 Oxycodone 5mg Immediate Release Tablet PO 05/09/24 22:17 5 mg ONCE ONE Administration ORDERS Category Date Time Status Elbow XR left mininum 3 views [XR elbow LT min 3V] Stat Exams 05/09/24 22:16 Taken Forearm XR left 2 views [XR forearm LT 2V] Stat Exams 05/09/24 22:16 Taken Hand XR left minimum 3 views [XR hand LT min 3V] Stat Exams 05/09/24 22:16 Taken Humerus XR left [XR humerus LT] Stat Exams 05/09/24 22:16 Taken Medical Decision Narrative: In summary patient is a 58-year-old female who presents to the emergency department for evaluation of fall and left upper extremity injury. Patient is hemodynamically stable upon arrival, afebrile. Physical exam is remarkable for exquisite tenderness on any motion of her left upper extremity from the elbow down. I cannot palpate a bony defect and she is neurovascular intact distally however she has exquisite pain at the elbow and forearm.. Differential diagnosis includes fracture versus contusion of the right upper extremity. Initial workup is ordered and pending at the time of handoff to Dr. Garsia at 2300 hrs. Critical Care Critical Care Time Critical Care Time: No
--- NOTE | 2024-05-09 22:16 | XR_ITS ---
PROCEDURE INFORMATION: Exam: XR Left Forearm Exam date and time: 05/09/2024 10:19 PM Age: 58 years old Clinical indication: Pain; Lower or forearm; Left; Additional info: Fall TECHNIQUE: Imaging protocol: Radiologic exam of the left forearm. Views: 2 views. COMPARISON: CR XR FOREARM LT 2V 06/25/2023 11:28 AM FINDINGS: Bones/joints: Partially visualized hardware of the proximal ulna, please see dedicated examination of the elbow for full findings. No additional fracture is identified. Soft tissues: Normal. IMPRESSION: Partially visualized hardware of the proximal ulna, please see dedicated examination of the elbow for full findings.
--- NOTE | 2024-05-09 22:16 | XR_ITS ---
PROCEDURE INFORMATION: Exam: XR Left Hand Exam date and time: 05/09/2024 10:15 PM Age: 58 years old Clinical indication: Pain; Hand; Left; Additional info: Fall TECHNIQUE: Imaging protocol: Radiologic exam of the left hand. Views: 3 or more views. COMPARISON: CR XR FOREARM LT 2V 06/25/2023 11:28 AM FINDINGS: Bones/joints: There is diffuse osseous demineralization. The osseous structures are intact, with no signs of acute fracture, dislocation, or malalignment. Age-related degenerative changes are observed. There is no evidence of abnormal bone density or destructive lesions. Soft tissues: The soft tissues appear within normal limits. IMPRESSION: At the time of imaging, the study shows no acute osseous abnormalities but does reveal signs of age-related degenerative changes.
--- NOTE | 2024-05-09 22:16 | XR_ITS ---
PROCEDURE INFORMATION: Exam: XR Left Humerus Exam date and time: 05/09/2024 10:25 PM Age: 58 years old Clinical indication: Pain; Upper arm; Left; Additional info: Fall TECHNIQUE: Imaging protocol: Radiologic exam of the left humerus. Views: 2 or more views. COMPARISON: CR XR HUMERUS LT 04/25/2023 12:55 AM FINDINGS: Bones/joints: Partially visualized proximal radial head fracture. No additional fracture or dislocation. No aggressive osseous lesion. Soft tissues: Soft tissues otherwise within normal limits. IMPRESSION: Partially visualized proximal radial head fracture.
--- NOTE | 2024-05-09 22:16 | XR_ITS ---
PROCEDURE INFORMATION: Exam: XR Left Elbow Exam date and time: 05/09/2024 10:20 PM Age: 58 years old Clinical indication: Pain; Elbow; Left; Additional info: Fall TECHNIQUE: Imaging protocol: Radiologic exam of the left elbow. Views: 3 or more views. COMPARISON: CR XR ELBOW LT MIN 3V 11/12/2023 9:53 AM FINDINGS: Bones/joints: There is hardware of the proximal ulna. There is an impacted and comminuted proximal radial head fracture with associated joint effusion. Soft tissues: Normal. IMPRESSION: Impacted and comminuted radial head fracture.
[2024-05-09] MEDS: ACETAMINOPHEN 500MG TAB 1000 MG PO (22:28)
[2024-05-09] MEDS: OXYCODONE 5MG IMMEDIATE RELEASE TABLET 5 MG PO (22:28)
--- NOTE | 2024-05-09 22:30 | PC.NURSE ---
pt to radiology
--- NOTE | 2024-05-09 23:13 | PC.NURSE ---
rounded on pt at this time, pt voices no needs
[2024-05-09] MEDS: METHOCARBAMOL 500MG TABLET 1000 MG PO (23:52)
[2024-05-09 23:54] VITALS: BP 152/78; PULSE 60; RESP 18; TEMP 36.8; O2SAT 98
== END 2024-05-09 23:57 | disposition home or self-care (01) ==
PROVIDERS: Emergency Provider Emergency Medicine; PCP Nurse Practitioner Family
DX: S52.122A Displaced fracture of head of left radius, initial encounter for closed fracture (principal); M25.522 Pain in left elbow; M79.632 Pain in left forearm; W19.XXXA Unspecified fall, initial encounter
CPT/HCPCS: 73060; 73080; 73090; 73130; 99284

== ENCOUNTER 2024-05-17 06:56 | Outpatient (CLI) | payer BC, SELFPAY ==
--- NOTE | 2024-05-17 07:06 | CT_ITS ---
FINAL REPORT TECHNIQUE: Axial images of the left elbow was performed by computed tomography. Sagittal and coronal reformatted images were obtained and reviewed. This study was performed with techniques to keep radiation doses as low as reasonably achievable (ALARA). Individualized dose reduction techniques using automated exposure control or adjustment of mA and/or kV according to the patient's size were employed. CLINICAL HISTORY: Lt elbow fx, pain and muscle spasms, injury over a year ago (orif) FINDINGS: There is extensive streak artifact arising from sideplate and screws securing the proximal ulna. There is a minimally displaced intra-articular fracture of the radial head. Finding is best seen on axial image 54 of series 5 and images 37-40 of series 2. IMPRESSION: Intra-articular fracture of the radial head, may be acute or subacute. Please correlate clinically. Reviewed, Interpreted and Dictated by Tono Andrade MD Transcribed by Nimco Epperson Authenticated and [facility]
== END 2024-05-17 23:59 | disposition home or self-care (01) ==
LOC: RAD 06:57
PROVIDERS: PCP Nurse Practitioner Family; Visit Provider Orthopaedic Surgery
DX: M25.522 Pain in left elbow (principal); S52.125A Nondisplaced fracture of head of left radius, initial encounter for closed fracture
CPT/HCPCS: 73200

== ENCOUNTER 2024-06-07 10:31 | Outpatient (CLI) | payer BC, SELFPAY ==
--- NOTE | 2024-06-07 10:36 | XR_ITS ---
FINAL REPORT CLINICAL HISTORY: lt elbow pain f/u radius fx COMPARISON: 11/12/2023 FINDINGS: LEFT ELBOW 3 views were obtained. There is a sideplate and screws securing the proximal ulna. No significant bony abnormality identified. There is no joint effusion. The joint spaces are intact. There is no soft tissue abnormality. IMPRESSION: Sideplate and screws present without acute bony abnormality. Reviewed, Interpreted and Dictated by Tono Andrade MD Transcribed by Astrid Echeverria Authenticated and . [facility]
== END 2024-06-07 23:59 | disposition home or self-care (01) ==
LOC: RAD 10:31
PROVIDERS: PCP Nurse Practitioner Family; Visit Provider Orthopaedic Surgery
DX: S52.125A Nondisplaced fracture of head of left radius, initial encounter for closed fracture (principal)
CPT/HCPCS: 73080

== ENCOUNTER 2024-07-05 10:31 | Outpatient (CLI) | payer BC, SELFPAY ==
--- NOTE | 2024-07-05 10:35 | XR_ITS ---
FINAL REPORT CLINICAL HISTORY: left elbox fx april ulna fx and surgery 1 yr ago COMPARISON: 06/07/2024 FINDINGS: LEFT ELBOW: 3 images of the left elbow were obtained. A sideplate and screws are seen overlying the proximal ulna. There is no change in appearance of the elbow since the prior exam of June 07. No new bony abnormality is identified. There is no soft tissue abnormality identified. IMPRESSION: Prior ORIF of a proximal ulna fracture in the proximal forearm, stable since the prior exam of 06/07/2024. No acute bony abnormalities identified. Reviewed, Interpreted and Dictated by Tono Andrade MD Transcribed by Britt Shelby Authenticated and [facility]
== END 2024-07-05 23:59 | disposition home or self-care (01) ==
LOC: RAD 10:33
PROVIDERS: PCP Nurse Practitioner Family; Visit Provider Physician Assistant
DX: M25.522 Pain in left elbow (principal); S52.125D Nondisplaced fracture of head of left radius, subsequent encounter for closed fracture with routine healing
CPT/HCPCS: 73080

== ENCOUNTER 2024-07-26 10:46 | Outpatient (CLI) | payer BC, SELFPAY ==
--- NOTE | 2024-07-26 10:50 | XR_ITS ---
FINAL REPORT CLINICAL HISTORY: left elbow fx fall 05/09 COMPARISON: None FINDINGS: LEFT ELBOW: 3 images of the left elbow were obtained. There are postoperative changes present in the proximal ulna, not significantly changed since the prior films of July 05. There is deformity of the lateral radial head consistent with subacute and/or chronic fracture, stable. No new fractures are identified since the prior exam. The joint spaces are intact. There is a partially improved joint effusion noted. IMPRESSION: Postoperative changes in the proximal ulna, with a slight deformity of the lateral aspect of the radial head consistent with subacute/chronic fracture deformity. No significant changes noted since the prior exam of July 05. Reviewed, Interpreted and Dictated by Jhonatan Ruiz III, MD Transcribed by Britt Shelby Authenticated and [facility]
== END 2024-07-26 23:59 | disposition home or self-care (01) ==
LOC: RAD 10:46
PROVIDERS: PCP Nurse Practitioner Family; Visit Provider Physician Assistant Surgical
DX: M25.522 Pain in left elbow (principal); S52.125D Nondisplaced fracture of head of left radius, subsequent encounter for closed fracture with routine healing
CPT/HCPCS: 73080

== ENCOUNTER 2024-08-23 08:41 | Outpatient (CLI) | payer BC, SELFPAY ==
--- NOTE | 2024-08-23 08:50 | XR_ITS ---
FINAL REPORT TECHNIQUE: 3 views left elbow CLINICAL HISTORY: broke May 09 COMPARISON: None available FINDINGS: LEFT ELBOW: 3 images of the left elbow were obtained. There is a chronic fracture of the proximal ulna, with a surgical plate and screws bridging the fracture. There is also a fracture of the lateral radial head, favor subacute or chronic. The joint spaces are intact. There is no soft tissue abnormality identified. IMPRESSION: Chronic fracture of the proximal ulna, with a surgical plate and screws bridging the fracture. Fracture of the lateral radial head, favor subacute or chronic. Authenticated and [facility]N
== END 2024-08-23 23:59 | disposition home or self-care (01) ==
LOC: RAD 08:42
PROVIDERS: PCP Nurse Practitioner Family; Visit Provider Orthopaedic Surgery
DX: S52.125D Nondisplaced fracture of head of left radius, subsequent encounter for closed fracture with routine healing (principal)
CPT/HCPCS: 73080

== ENCOUNTER 2024-09-20 08:40 | Outpatient (CLI) | payer BC, SELFPAY ==
--- NOTE | 2024-09-20 08:44 | XR_ITS ---
FINAL REPORT CLINICAL HISTORY: left elbow fx COMPARISON: 08/23/2024 FINDINGS: 3 views of the left elbow were obtained. There is a fracture of the lateral radial head, which is stable from the prior exam. There are postoperative changes in the proximal ulna. Mild degenerative changes are noted. There is no acute soft tissue abnormality. IMPRESSION: Stable lateral radial head fracture. Reviewed, Interpreted and Dictated by Jhonatan Ruiz III, MD Transcribed by Debi Zimmerman Authenticated and [facility]
== END 2024-09-20 23:59 | disposition home or self-care (01) ==
LOC: RAD 08:41
PROVIDERS: PCP Nurse Practitioner Family; Visit Provider Physician Assistant Surgical
DX: S52.125D Nondisplaced fracture of head of left radius, subsequent encounter for closed fracture with routine healing (principal)
CPT/HCPCS: 73080

== ENCOUNTER 2024-10-18 14:00 | Outpatient (RCR) | payer BC, SELFPAY ==
--- NOTE | 2024-07-28 08:58 | HMH.OTOPEV ---
OT Inpatient Evaluation Rehab OT Outpatient Eval Start: 07/28/24 08:27 Freq: Status: Active Protocol: Document 07/28/24 08:27 ALEX (Rec: 07/28/24 08:58 [id number] E-signed By Dawson Almanza, OT Outpatient Therapy Subjective History Subjective History Pt is a 59 y/o female who presents to therapy with a L elbow fracture. Pt is R hand dominant. Pt injured the L elbow in April of 2023 after a fall which resulted in a fx in the ulna and dislocated radius. Pt required an ORIF with this fx in April of 2023. Pt re-injured L elbow in April of 2024 during another fall. This resulted in a fracture of the radial head that did not require surgery. Pt has been wearing a sling for the past ~ 8-10 weeks. Pt is able to remove sling as needed when at home. Pt presents with limited ROM and strength at left elbow. Pt will continue to be seen twice a week in order to address left elbow deficits. New diagnosis of cancer in past 12 No months? 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,Decreased Coordination Symptom Type Ache,Throb,Sharp,Dull,Stabbing Symptoms Relieved By Ice Symptoms Aggravated By Physical Activity,Twisting, Lifting Prior Functional Limitations None Current Functional Limitations Reaching,Lifting,Housework, Dressing,Driving,Sleeping, Recreation Activity Symptom Description Constant but Variable Level of pain today (0-10) 3 Pain scale - at its best (0-10) 2 Pain scale - at its worst (0-10) 5 Shoulder/Elbow Eval Shoulder Objective Measurements Elbow Objective Measurements Elbow ROM Left Elbow Extension Active Range of Motion ( -30 degrees) Elbow Flexion Active Range of Motion ( 126 degrees) Elbow Pronation of Forearm Range of 90 Motion (degrees) Elbow Supination of Forearm Range of 75 Motion (degrees) Elbow ROM Limitations Pain Elbow MMT Elbow Flexion Strength Grade 3 Fair Elbow Extension Strength Grade 3 Fair Supination Strength Grade 3 Fair Pronation Strength Grade 3 Fair Wrist/Hand Eval Planting Machine Crewman/Pinch Strength Right Planting Machine Crewman Strength Measurement (lbs) 55 Left Planting Machine Crewman Strength Measurement (lbs) 25 QuickDASH Activities Please rate your ability to do the following activities in the last week by selecting the number below the appropriate response. 1. Open a tight or new jar. Severe difficulty 2. 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 3. Carry a shopping bag or briefcase. Severe difficulty 4. Wash your back. Moderate difficulty 5. Use a knife to cut food. Moderate difficulty 6. Recreational activities in which you Severe difficulty take some force or impact through your arm, shoulder, or hand (e.g., golf, hammering, tennis, etc.). 7. During the past week, to what extent Quite a bit has your arm, shoulder or hand problem interfered with your normal social activities with family, friends, neighbors or groups? 8. During the past week, were you Unable limited in your work or other regular daily activites as a result of your arm, shoulder or hand problem? 9. Arm, shoulder or hand pain. Moderate 10. Tingling (pins and needles) in your Moderate arm, shoulder or hand. 11. During the past week, how much Moderate difficulty difficulty have you had sleeping because of the pain in your arm, shoulder or hand? Quick DASH 39 OT Outpatient Assessment Impairments Problems/Impairments Impaired Range of Motion, Impaired Strength,Impaired Endurance,Impaired Work Activities,Subjective C/O Pain Prognosis Rehab Potential Good Clinical Impression Consistent with Diagnosis Yes Short Term Goals Number of Weeks 2 Increase Range of Motion Yes: flex: 140 ext: -15 sup: 80 Increase Strength Yes: 4/5 throughout L elbow Increase Endurance Yes: Pt will tolerate 15 minutes of L elbow exercise prior to rest Decrease Subjective C/O Pain Yes: 3/10 at worst Patient to be Ind w/ HEP Yes: AROM/AAROM L elbow exercises: flex, ext, sup, pron Improve Quick Dash Score Yes: activities: 30 or below Correction Goals Number of Weeks 4 Increase Range of Motion Yes: flex: 145 ext: -5 sup: 90 Increase Strength Yes: 4+/5 throughout L elbow Increase Endurance Yes: Pt will tolerate 25 minutes of L elbow exercises prior to rest Decrease Subjective C/O Pain Yes: 2/10 at worst Patient to be Ind w/ Advanced HEP Yes: AROM/AAROM L elbow exercises: Theraband, weights Improve Quick Dash Score Yes: activities: 20 or below Outpatient Therapy Plan of Care Treatment Plan May Include Therapeutic Exercise Including Home Yes Exercise Program Manual Therapy Techniques Yes Neuromuscular Re-education Yes Therapeutic Activities to Return to Yes Previous Functional/Work Level ADL/Self Care Education Yes Thermal Modalities Yes Electrical Stimulation Yes Ultrasound/Phonophoresis Yes Iontophoresis Yes Parrafin Yes Orthotics/Bracing/Splinting Yes Massage Yes Eval/Re-Eval Yes Frequency Times per week 2 Duration Number of Weeks 6 Addendums This patient is a candidate for social No or vocational rehab? Patient/Guardian verbally acknowledges Yes understanding of treatment program and consents to further treatment? Patient/Guardian verbally acknowledges Yes understanding of diagnosis, prognosis and goals for treatment? Eval Complexity OT Charge 82485 - Moderate Complexity PHYSICIAN CERTIFICATION: I certify the specified therapy services for Piper Peace are required, authorized, and reviewed every 30 days.
--- NOTE | 2024-08-23 11:46 | HMH.RHREAS ---
Rehab Reassessment Rehab OP Re-assessment Start: 07/28/24 07:58 Freq: Status: Active Protocol: Document 08/23/24 11:39 ALEX (Rec: 08/23/24 11:45 ALEX [id number]) E-signed By Dawson Almanza OT Rehab Re-assessment Subjective Subjective I do think it is doing better . Objective Objective Notes Pt continues to be seen twice a week in order to address left elbow deficits. Each session, pt has been engaging in L elbow AROM and AAROM exercises. Pt also receives PROM manual stretching to left elbow in flexion, extension, supination, and pronation. Modalities are provided in order to decrease pain/ inflammation. Assessment Progress Assessment Progressing as Expected Assessment Notes Pt returned to ortho today. Ortho has released her to return to work on light duty, discharged the sling, and a 5 lb weight restriction. Pt will return to ortho in another month. Ortho does report an improvement in overall healing after review of the x-ray. Pt's AROM and nursing resident strength have improved since initial evaluation. Therapist plans to advance patient to light strengthening exercises. Current AROM L elbow Flex: 132 degrees Extension: -10 Sup: 90 degrees L hand nursing resident strength: 30 [address] goals [address]-5 Goals Not Met See below Revised Goals ST and 6 LT-6 L hand nursing resident strength goal: 40 lbs Plan Plan Continue with OT plan of care at this time. Frequency of Therapy 2x's a week Duration of therapy 4 more weeks Time and Billing Re-Eval Time 10 Re-Eval Billing Units 1 Charge for OT reassessment? Yes PHYSICIAN CERTIFICATION: I certify the specified therapy services for iPper Peace are required, authorized, and reviewed every 30 days.
--- NOTE | 2024-09-22 11:15 | HMH.RHREAS ---
Rehab Reassessment Rehab OP Re-assessment Start: 07/28/24 07:58 Freq: Status: Active Protocol: Document 09/22/24 11:09 ALEX (Rec: 09/22/24 11:14 ALEX [id number]) E-signed By Dawson Almanza OT Rehab Re-assessment Subjective Subjective It still gets tight at times. Objective Objective Notes Pt continues to be seen twice a week in order to address left elbow deficits. Each session, pt has been engaging in L elbow AROM, AAROM, and light strengthening exercises. Pt also receives PROM manual stretching to left elbow in flexion, extension, supination , and pronation. Modalities are provided in order to decrease pain/inflammation. Assessment Progress Assessment Progressing as Expected Assessment Notes Pt attends therapy session consistently twice a week. Pt returned to ortho this past Thursday. She is currently still on a 5 lb weight restriction at work that will remain. At this time, ortho requests continued therapy until there has been a plateau with overall movement at the elbow, specifically in extension. Ortho also reports an improvement in overall healing after review of the x- ray. Pt's AROM has improved slightly since last re- assessment, but remains limited with extension. Therapist plans to advance patient to light strengthening exercises. Current AROM L elbow Flex: 135 degrees Extension: -10 Sup: 90 degrees L hand housefellow strength: 30 lbs [address] goals [address]-5 Goals Not Met See below Revised Goals ST and 6 LT-6 L hand housefellow strength goal: 40 lbs Plan Plan Continue with OT plan of care at this time. Frequency of Therapy 2x's a week Duration of therapy 4 more weeks Time and Billing Re-Eval Time 8 Re-Eval Billing Units 1 Charge for OT reassessment? Yes PHYSICIAN CERTIFICATION: I certify the specified therapy services for Piper Peace are required, authorized, and reviewed every 30 days.
== END 2024-10-18 23:59 | disposition home or self-care (01) ==
LOC: OT 14:00
PROVIDERS: Visit Provider Physician Assistant Surgical
DX: M25.522 Pain in left elbow (principal); S42.402A Unspecified fracture of lower end of left humerus, initial encounter for closed fracture
CPT/HCPCS: 97014; 97110; 97140; 97166; 97168; G0283

== ENCOUNTER 2025-03-20 09:01 | Outpatient (CLI) | payer BC, SELFPAY ==
--- NOTE | 2025-03-20 09:04 | XR_ITS ---
FINAL REPORT CLINICAL HISTORY: Left Elbow fx april 2023 - sx fx april 2024, proximal radius - no sx COMPARISON: 09/2024 FINDINGS: AP, oblique, and lateral views of the left elbow were obtained. There are postoperative changes of ORIF of the olecranon. Hardware is intact. There has been interval healing of previously seen a radial head fracture. No new abnormality is identified. There is no acute fracture or dislocation. Joint space is preserved. There is no joint effusion or other soft tissue abnormality. IMPRESSION: Interval healing of previously seen radial head fracture. No new abnormality. Reviewed, Interpreted and Dictated by Shilpa Nowak MD Transcribed by Traci Corley Authenticated and [facility]
== END 2025-03-20 23:59 | disposition home or self-care (01) ==
LOC: RAD 09:02
PROVIDERS: PCP Nurse Practitioner Family; Visit Provider Orthopaedic Surgery
DX: S52.122D Displaced fracture of head of left radius, subsequent encounter for closed fracture with routine healing
CPT/HCPCS: 73080